=== PATIENT | male | born 1960 | race Native Hawaiian/Other Pacific Islander ===

== ENCOUNTER 2018-09-07 11:26 | Emergency (ER) | payer OTHER ==
[~2018-09-07] VITALS: Ht 180.3 cm; Wt 61.2 kg
[2018-09-07 13:33] VITALS: BP 113/76; TEMP 97.8
== END 2018-09-07 13:33 | disposition short-term general hospital (02) ==
LOC: ED 11:26
DX: S62.91XB Unspecified fracture of right hand, initial encounter for open fracture (principal); S62.511B Displaced fracture of proximal phalanx of right thumb, initial encounter for open fracture; W30.89XA Contact with other specified agricultural machinery, initial encounter; W23.0XXA Caught, crushed, jammed, or pinched between moving objects, initial encounter
CPT/HCPCS: 36415; 90471; 90715; 96365; 96375; 99284; J0690; J2270; J2405; J7040

== ENCOUNTER 2018-09-07 13:36 | Outpatient (CLI) | payer OTHER | END 2018-09-07 15:34 | disposition short-term general hospital (02) | LOC: AMB 13:36 | DX: S62.91XB Unspecified fracture of right hand, initial encounter for open fracture (principal); S62.511B Displaced fracture of proximal phalanx of right thumb, initial encounter for open fracture; W30.89XA Contact with other specified agricultural machinery, initial encounter; W23.0XXA Caught, crushed, jammed, or pinched between moving objects, initial encounter | CPT/HCPCS: A0425; A0429 ==